=== PATIENT | female | born 2000 | race Caucasian/White ===

== ENCOUNTER 2025-01-05 14:00 | Outpatient (CLI) | payer OTHER, SELFPAY ==
[2025-01-05 14:37] VITALS: BP 120/67; PULSE 76; RESP 16; TEMP 37.4
[2025-01-05 14:43] VITALS: BMI 25.6
[2025-01-05 14:58] LABS: Color, Urine Yellow (Yellow); Glucose, Dipstick Normal (Normal); Ketone-Dipstick Negative (Negative); Leukocyte Esterase-Dipstick Negative /ul (Negative); Nitrite-Dipstick Negative (Negative); Occult Blood-Urine 250 /ul (Negative); Protein-Dipstick Negative (Negative); Urine Bilirubin Dipstick Negative (Negative); Urine Clarity Clear (Clear); Urine Urobilinogen Normal (Normal); Urine pH 6.5 (5.0 - 8.0)
[2025-01-05 15:21] LABS: ROM Internal Control Test YES-OK TO RESULT pt. (Internal QC); ROM Patient Test Negative (Negative); Record Kit Lot#, ROM+ K3358
[2025-01-05] MEDS: LACTATED RINGERS 500 ML 999 ML IV (16:25)
--- NOTE | 2025-01-05 19:02 | OB.TRI.NOTE ---
HPI - General HPI Narrative UMER CHISHOLM, is a 24 F who presents to rule out PPROM. [facility] Medical History (Updated 01/05/25 @ 19:05 by Myra Graf CNM) Depression Anxiety Allergy/AdvReac Type Severity Reaction Status Date / Time No Known Allergies Allergy Verified 01/05/25 14:41 ROS Eyes Eyes: Denies blurry vision Cardiovascular Cardiovascular: Reports none; Denies chest pain at rest, chest pain with activity or dizziness Respiratory/Chest Respiratory/Chest: Denies cough or dyspnea Gastrointestinal Gastrointestinal: Reports none and other; Denies diarrhea or vomiting Genitourinary Genitourinary: Denies dysuria Musculoskeletal Musculoskeletal: Reports none Integumentary Integumentary: Reports none; Denies rash Neurologic Neurologic: Denies dizziness, headache(s) or other visual disturbances Psychiatric Psychiatric: Reports none Physical Exam Const alert and no apparent distress General Appearance: cooperative Orientation / Consciousness: awake Exam Limitations: no limitations HEENT normocephalic Eyes General Eye: normal appearance of both eyes Neck full ROM Chest inspection of chest normal Resp normal respiratory effort and normal air movement Effort and Inspection: symmetric chest movement Auscultation: clear to auscultation bilaterally Cardio regular rate GI soft to palpation, non-tender and non-distended Inspection: and other Back/Spine normal ROM Extremity full ROM, normal capillary refill and no calf tenderness Skin no rashes or lesions noted Neuro oriented x3 and CN's II-XII intact bilaterally Psych mental status grossly normal NST FHR Rate Baby A Baseline: 150 Variability:: Moderate Accelerations:: 15 x 15 Decelerations:: None NST Reactive:: Appropriate for gestational age Uterine Activity:: irregular/ irritability Assessment & Plan (1) 29 weeks gestation of : (2) Leakage of amniotic fluid: PLAN: Plan UA- collected and sent due +occult blood IV started and fluid bolus given Patient denies feeling any contractions or cramping ROM plus- NEGATIVE D/C home with follow up in office Dr. Dumas notified of A&P
== END 2025-01-05 17:08 | disposition home or self-care (01) ==
LOC: WPOUT 14:22 → WP 14:22
PROVIDERS: PCP Nurse Practitioner Family; Referring Provider Advanced Practice Midwife; Visit Provider Advanced Practice Midwife
DX: O42.913 Preterm premature rupture of membranes, unspecified as to length of time between rupture and onset of labor, third trimester (principal); Z3A.29 29 weeks gestation of pregnancy
CPT/HCPCS: 96360; 59025; 59050; 81002; 84112; 87086; 87088; 99221; G0378

== ENCOUNTER 2025-03-14 19:15 | Inpatient (IN) | payer OTHER, SELFPAY ==
[2025-03-14] VITALS (9 sets, daily range): BP systolic 122–145; BP diastolic 77–92; PULSE 60–89; RESP 16; TEMP 36.4–36.7; O2SAT 98–100; BMI 27.1
--- NOTE | 2025-03-14 19:49 | HP.PCM.OB_ITS ---
HPI - General General Date of Admission: 03/14/25 Date of Service: 03/14/25 HPI Narrative UMER CHISHOLM, is a 25 F who presents for induction. Maternal Data Information YOLA Calculator Estimated Delivery Date Method Current WG Current Estimate 03/21/25 Manual 39w 0d [facility] Medical History (Updated 03/14/25 @ 19:[address] Saritha Dumas MD) PCOS (polycystic ovarian syndrome) Polyhydramnios Depression Anxiety Home Medications ?Medication ?Instructions ?Recorded ?Last Taken ?Type aspirin 81 mg tablet,delayed 81 mg PO DAILY 03/14/25 Unknown History release escitalopram oxalate .ROUTE anxiety 03/14/25 Unkn own History vitamin no.102-iron 90 cap PO 03/14 Unknown History mg-folate 1 mg-dha 200 mg capsule Allergy/AdvReac Type Severity Reaction Status Date / Time No Known Allergies Allergy Verified 03/14/25 19:29 NST FHR Rate Baby A Baseline: 150 Variability:: Moderate Accelerations:: 15 x 15 Decelerations:: None Uterine Activity:: quiet Vital Signs Vital Signs Vital Signs: 03/14/25 19:34 03/14/25 19:34 03/14/25 19:36 Temperature Temperature Source Temporal Pulse Rate 84 Respiratory Rate Blood Pressure BP Systolic BP Diastolic Pulse Ox 98 03/14/25 19:36 03/14/25 19:36 03/14/25 19:40 Temperature 97.6 F L Temperature Source Pulse Rate Respiratory Rate 16 Blood Pressure 145/92 H BP Systolic 145 BP Diastolic 92 Pulse Ox 03/14/25 19:40 Temperature Temperature Source Pulse Rate 89 Respiratory Rate Blood Pressure BP Systolic BP Diastolic Pulse Ox Weight Weight: 163 lb Body Mass Index (BMI) 27.1 Physical Exam Const alert, oriented x3 and no apparent distress Chest inspection of chest normal GI soft to palpation, non-tender, non-distended and no masses Inspection: gravid external exam normal Narrative: cvx - 1.5/70/-2 Labs Labs Labs: No Data to Display Assessment & Plan (1) 39 weeks gestation of : COMMENT: @ 39 weeks (2) Polyhydramnios: QUALIFIERS: Trimester: third trimester Fetus number: single or unspecified fetus Qualified Code(s): O40.3XX0 - Polyhydramnios, third trimester, not applicable or unspecified COMMENT: (mild, CHRISTY = 24.7) PLAN: Plan Admit to L&D Induction - intracervical barraza placed & will start pitocin GBS negative Pain - epidural as desired EFW - less than 4500g & patient with adequate pelvis
[2025-03-14 20:06] LABS: Hematocrit 32.8 % (37-47); Hemoglobin 10.9 g/dL (12.0-15.0); Immature Granulocytes Count 0.070 X10^3/uL (0.0-0.0); Mean Corp Hgb Conc 33.2 g/dL (32-36); Mean Corpuscular Volume 88.2 fL (81-99); Mean Platelet Vol. 10.8 fl (6.2-12.0); NRBC Flagged by Analyzer 0 % (0-5); Platelet Count 259 K/mm3 (150-450); RBC Distribution Width CV 12.8 % (11.6-14.6); RBC Distribution Width SD 40.9 fl (35.1-43.9); Red Blood Count 3.72 M/mm3 (4.2-5.4); White Blood Count 14.8 K/mm3 (4.4-11.0)
[2025-03-14] MEDS: 0.9% Normal Saline Single 100 ML IV.SOLN. INTRA-UTER (20:41)
[2025-03-14 20:45] LABS: Syphilis Antibodies Nonreactive (Nonreactive)
[2025-03-14] MEDS: Lactated Ringers 1,000 ML 50 ML IV (22:04)
[2025-03-14] MEDS: Oxytocin 15 Units/NS 250ml 15 UNITS/250 ML IV.SOLN 2 UNITS IV (22:04)
[2025-03-15] VITALS (52 sets, daily range): BP systolic 102–142; BP diastolic 55–93; PULSE 55–102; RESP 16–20; TEMP 36.3–37.4; O2SAT 81–100
[2025-03-15] MEDS: LACTATED RINGERS 500 ML 999 ML IV (07:47)
--- NOTE | 2025-03-15 08:36 | PCM.PN.BLA ---
Progress Note pt seen at bedside, doing well. pt reports mild ctx pain. VE: 4.5/70/-2 AROM clear fluid. IUPC placed.
[2025-03-15] MEDS: 0.9% Saline Lock 10 ML Syringe IV (08:42)
[2025-03-15] MEDS: Lactated Ringers 1,000 ML 999 ML IV (09:00)
[2025-03-15] MEDS: fentaNYL-bupivacaine (epidural) 100 ML BAG EPIDURAL ×2 (09:41→13:20)
[2025-03-15] MEDS: Lactated Ringers 1,000 ML 200 ML IV (12:13)
--- NOTE | 2025-03-15 17:19 | EX.PCM.OBVAG ---
Maternal Data Information YOLA Calculator Estimated Delivery Date Method Current WG Current Estimate 03/21/25 Manual 39w 1d Final YOLA: 03/21/25 Final YOLA Source: US <20 weeks Vaginal Delivery Maternal Presentation Maternal Presentation: Medically Indicated Induction Maternal Presentation: 39 weeks, polyhydramnios Type of Induction: Pitocin and Paige Bulb Medical Reason for Induction: Other (polyhydramnios ) Vaginal Delivery Information Procedure Performed: Spontaneous Vaginal Delivery Surgeon/Practitioner: Yanni Haro Date of Procedure: 03/15/25 Pre-Procedure Diagnosis: Polyhydramnios, 39 weeks Post-Procedure Diagnosis: same, live female infant Type of anesthesia: Epidural Estimated Blood Loss: 100 Time of Delivery: 16:57 Findings Description of procedure: Patient progressed to fully dilated. Good maternal pushing efforts delivered the head followed by the anterior and posterior shoulder without delay in the rest the 's body. was placed on the mother's chest for immediate skin to skin. was vigorous. Delayed cord clamping was performed. Pitocin was started. Placenta then delivered intact without complication. There was a second-degree vaginal laceration appreciated this was repaired using 2-0 Vicryl suture and a 3-0 Rapide. Patient tolerated well. Presentation: Vertex Amniotic Membrane Rupture Type: Artificial Amniotic Fluid Description: Clear Placental Delivery Description: Expressed Placenta Disposition: [facility] Specimen collected: No Cord Vessel Description: 3 Vessels Cord Entanglement: None Infant A Gender: Female (1 minute): 8 (5 minute): 9 Delayed Cord Clamping: Yes Ems Instructor mending carrier: No Post Vaginal Deli Medications given after delivery: IV Pitocin Episiotomy Description: None Laceration: Vaginal Extension/lac and 2nd degree Complication Complications: No
[2025-03-15] MEDS: Oxytocin 15 Units/NS 250ml 15 UNITS/250 ML IV.SOLN 83 UNITS IV (17:30)
[2025-03-16] VITALS (9 sets, daily range): BP systolic 100–131; BP diastolic 55–81; PULSE 63–82; RESP 14–18; TEMP 36.3–36.9; O2SAT 92–98
--- NOTE | 2025-03-16 09:34 | PCM.PN.OB ---
Subjective Subjective Doing well. Ambulating and voiding without difficulty. Mild lochia. Breast feeding. Objective Data Objective Data Vital Signs: Vital Signs Temp Pulse Resp BP Pulse Ox O2 Del Method 98.1 F 79 14 123/81 H 97 Room Air 03/16/25 04:35 03/16/25 09:11 03/16/25 04:35 03/16/25 09:11 03/16/25 09:11 03/16/25 04:35 Oxygen Delivery Method Room Air Weight: 73.936 kg Body Mass Index (BMI) 27.1 Intake & Output: Intake and Output for Last 24 Hours 03/14/25 03/15/25 03/16/25 23:59 23:59 23:59 Intake Total 1.87 / 1.87 3856.46 / 3856.46 Output Total 2500 / 2500 1600 / 1600 Balance 1.87 / 1.87 1356.46 / 1356.46 -1600 / -1600 Lab / Micro Data 03/14/25 19:30 ROS Constitutional Constitutional: Denies headache(s) Cardiovascular Cardiovascular: Denies chest pain or dyspnea Gastrointestinal Gastrointestinal: Denies nausea or vomiting Genitourinary Genitourinary: Denies dysuria Physical Exam Const alert, oriented x3 and no apparent distress General Appearance: cooperative and comfortable Eyes PERRL and EOMs intact bilaterally Resp normal respiratory effort GI soft to palpation and non-tender Narrative: Fundus firm, below umbilicus. Uterus Palpation: uterus fundus firm ( below umbilicus) Extremity normal to inspection and full ROM Neuro oriented x3 and CN's II-XII intact bilaterally Psych mental status grossly normal Assessment & Plan (1) (spontaneous vaginal delivery): PLAN: Plan Discharge home
[2025-03-16] MEDS: Benzocaine/Lanolin/Aloe Vera 85 GM Spray 1 SPRAY TOPICAL (13:02)
--- NOTE | 2025-03-16 18:01 | PCM.DC.SUM ---
Providers Date of Admission: 03/14/25 Date of Discharge: 03/16/25 Primary Care Physician: SALVATORE MartellC Reason For Visit: VAGINAL DELIVERY Diagnosis Discharge Diagnosis (1) (spontaneous vaginal delivery): Status: Acute Code(s): O80 - Encounter for full-term uncomplicated delivery Plan Discharge home Medications at Discharge Home Medications escitalopram oxalate .ROUTE anxiety 03/14/25 vitamin no.102-iron 90 mg-folate 1 mg-dha 200 mg capsule cap PO 03/14/25 ibuprofen 600 mg tablet 600 mg PO Q6H PRN PRN Pain Score 1-10 #60 tabs 03/16/25 Hospital Course Operations None Procedures None Summary of Care Provided Minutes Spent on Discharge: 20 Hospital Course: without complication. Breast and bottle feeding Physical Exam Const alert and no apparent distress Narrative: Fundus firm, below umbilicus. Weight / BMI Weight Weight: 73.936 kg Body Mass Index (BMI) 27.1 ABG / Lab / Microbiology Data 03/14/25 19:30 D/C Instructions May resume sexual activity in: 6 weeks DC O2, CPAP, BIPAP Needs Home O2 Discharge instructions: No Please Follow Up With: Cary Eisenberg MD When: Follow up with our office in 1-2 and 6 weeks or as needed. [phone] Meaningful Use Info Meaningful Use Meaningful Use Diagnoses (Choose all that apply): None applicable Discharge Plan Admission Admit Date/Time: 03/14/25 19:15 Primary Reason for Your Visit: labor Attending Provider: Yanni Haro Primary Care Provider: Maggie Fuentes NP Discharge Orders/Prescriptions Prescriptions: New ibuprofen 600 mg Tablet 600 mg PO Q6H PRN PRN (Reason: Pain Score 1-10) Qty: 60 0RF Continued escitalopram oxalate [Lexapro] .ROUTE PNV [id number] 90 mg iron- 1 mg-200 mg capsule PO Discontinued aspirin 81 mg tablet,delayed release (DR/EC) 81 mg PO DAILY Referrals / Follow Up: Maggie Fuentes NP, GAUGE AND WEIGH MACHINE ADJUSTER-C [Primary Care Provider] - Disposition Disposition (needs filled in before D/C Order can be placed): Home, Self Care
--- NOTE | 2025-03-17 09:27 | CASEMGMT ---
Social Work Assessment Labor and Delivery Unit Patient Address: [address] [place] [address] Phone number: [phone] Date of Referral: 03/16/25 Time of Referral:? [id number] Referred By: Dr. Bean Date of Intervention: ?03/16/25? Time of Intervention:? 1429 Reason for Referral:? anxiety and depression Sw completed chart review and acknowledges social work consult. Sw presented to bedside and introduced self to mother of baby (MOB- Ana Paula) and father of baby (FOB- Pato). Sw explained reason for sw involvement and completed psychosocial assessment. History obtained from: medical records, MOB and FOB Household composition: Currently SHAHAB is living with her mother. MOB states that FOGypsy lives with his mom, but is with her a majority of the time. MOB states that baby to live with her when ready for discharge, and FOB to be with them a lot of the time. MOB denies any problems or concerns with housing, stating that their house is safe and secure. Patient's parent/guardian status:? Parents state that they have been together for 3 years. They say they have known each other most of their lives since their parents have always been friends. baby is first baby for both parents together. No concerns reported of domestic violence or intimate partner violence. ? Medical History: ?SHAHAB is 25 year old female who is 1, para 0- now 1 following labor and delivery of . SHAHAB received routine care during with [facility] beginning in first trimester. SHAHAB states that she discovered she was on last year. SHAHAB presented to hospital in active labor and delivered baby via spontaneous vaginal delivery on 03/15/25 at 39 weeks gestation. Baby girl, named Liliana was born weighing 7lb 5oz and had apgars of 8 and 9 at one and five minutes of life, respectfully. SHAHAB is bottle and breast feeding and states that she plans on having baby followed by [facility] for pediatric care. Educational Status:? Both parents graduated from high school. Parents deny any problems or concerns with reading, learning or comprehension. Financial Status: SAMM is employed working at [employer], he is given 6 weeks off for paternity leave. SHAHAB states that she was previously working for [employer], and is not sure if she is going to return to working there or not when she is ready to go back. Infant Supplies:?All necessary baby supplies obtained, including: car seat, safe sleep space, clothes, diapers and wipes Childcare/Caregiver(s):? SHAHAB states that she is baby's primary caregiver, along with FOGypsy. MOB states that because she resides with her mom, her mom will also be a big help with baby. Transportation:?? Both parents have their drivers license and reliable means of transportation. No barriers. Programs/Agencies Involved: ?SHAHAB is connected to [facility] for insurance and food benefits. She states that she also tried to get connected to [facility], but was told to call them back when baby was born. ?? Children Services/Legal Issues:??No history of children services involvement. NO issues or concerns warranting referral to be made at this time. ? Behavioral Health Issues: ??Mental Health History:??SAMM denies mental health history or diagnoses. MOB states that she has been diagnosed with anxiety and depression, was previously prescribed citalopram. MOB states that her primary care doctor prescribes her medication. MOB states that she can tell a difference with her medication. MOB states that she feels as though her anxiety is managed, however she did feel more anxious during her . SHAHAB reports that an OBGYN informed her that she would not be able to get or have children due to her PCOS, and then when she discovered that she was she was caught extremely off guard so it took her a while to get acclimated to the idea of being a mom. Patient states that she is now very excited and happy. ? Substance Use History:??Parents deny substance use prior to and during . Family History:?Parents deny family history of substance use or significant mental health history. ? Drug Screens: ?No drug screens observed while completing chart review. ? Family/Social Stressors:? MOB denies any issues, concerns or stressors Support Systems: MOB states that FOB, her mom and FOB's mom are her biggest supports. Depression/Shaken Baby/Safe Sleeping:? Michelle educated parents at length regarding signs and symptoms of baby blues and depression and anxiety. Michelle explained to SHAHAB that she is more at risk for experiencing mood symptoms due to her mental health history. SHAHAB expressed understanding and states that if she were to struggle she feels comfortable talking to FOB or her mom about that. FOB says that if MOB were to have any difficulties with her mental health during this period, he would be able to recognize that and would know how to help and support her. MOB reports that she feels really good at this time, stating that she is happy, denies being down, sad, anxious or tearful. Sw educated parents on shaken baby prevention and ABCs of safe sleep, parents express understanding. ASSESSMENT:? MOB and baby admitted following labor and delivery. MOB with mental health history primarily of anxiety. MOB reports that she felt anxious during her due to being told that she was not going to be able to have children, however as progressed those anxious thoughts went away and she became more and more excited to be a mom and to meet baby. MOB reports that now that baby is here she is happy to meet her and excited to go home. MOB was observed to hold baby loving and provided appropriate hands on care. FOB also observed to hold baby and change her diaper and swaddle her appropriately. FOB states that he feels comfortable holding baby and caring for her. Parents were open and engaging throughout conversation. Parents have obtained all necessary baby supplies and have natural supports in place. MOB is prescribed medication to help her manage her mental health and is followed by her PCP to help manage any issues or concers. PLAN:? No other services requested or indicated. MOB and baby to be discharged when medically ready. Parents were provided literature regarding: signs and symptoms of baby blues and mood and anxiety disorders, Help Me Grow, shaken baby prevention, ABCs of safe sleep and a list of county resources that are available for them should any needs present themselves. Juliane Chauhan, PATIENT CARE COORDINATOR, TELECOMMUNICATION OPERATOR
--- NOTE | 2025-03-22 15:40 | NURSING ---
Follow up phone call made, no answer, left voicemail
== END 2025-03-16 19:15 | disposition home or self-care (01) | DRG 807 ==
PROVIDERS: Admitting Provider Obstetrics & Gynecology; PCP Nurse Practitioner Family; Visit Provider Obstetrics & Gynecology
DX: O40.3XX0 Polyhydramnios, third trimester, not applicable or unspecified (principal); Z37.0 Single live birth; O99.344 Other mental disorders complicating childbirth; E28.2 Polycystic ovarian syndrome; F32.A Depression, unspecified; F41.9 Anxiety disorder, unspecified; O70.1 Second degree perineal laceration during delivery; O99.284 Endocrine, nutritional and metabolic diseases complicating childbirth; Z3A.39 39 weeks gestation of pregnancy; Z79.82 Long term (current) use of aspirin; Z79.899 Other long term (current) drug therapy
CPT/HCPCS: 59025; 59050; 85025; 86780; 86850; 86900; 86901; 99221; A4216; G0378; J2405

== ENCOUNTER 2025-04-29 16:02 | Emergency (ER) | payer MEDICAID, SELFPAY ==
[2025-04-29 16:02] VITALS: BP 127/79; PULSE 68; RESP 16; TEMP 36; O2SAT 100; BMI 22.9
--- NOTE | 2025-04-29 16:41 | EX.ED.VIS.EY ---
HPI History of Present Illness Chief Complaint: Eye Problem Narrative Narrative: Patient is a 25-year-old female with past medical history of PCOS, anxiety, depression who presents to the emergency department the chief complaint of swelling to her right lower eyelid. States that she woke up this morning noted that she had some swelling noted to her lower eyelid prompting her to come here for further evaluation management. States that she tried warm compresses without any relief originally thought this was a stye. Patient states that she currently is breast-feeding. [facility] Medical History PCOS (polycystic ovarian syndrome) Polyhydramnios Depression Anxiety Home Medications ?Medication ?Instructions ?Recorded ?Last Taken ?Type escitalopram oxalate .ROUTE anxiety 03/14/25 Unknown History vitamins no.102-iron 90 cap PO 03/14/25 Unknown History mg-folate 1 mg-dha 200 mg capsule ibuprofen 600 mg tablet 600 mg PO Q6H PRN PRN Pain Score 03/16/25 Unknown Rx 1-10 #60 tabs cephalexin 500 mg capsule 500 mg PO BID #10 caps 04/29/25 Unknown Rx Allergy/AdvReac Type Severity Reaction Status Date / Time No Known Allergies Allergy Verified 03/14/25 19:29 Social History Smoking Status: Current every day smoker tobacco type: e-cigarettes ROS ROS ED ROS Narrative Constitutional: Denies any fevers or chills Eyes: Complains of swelling to her right lower eyelid as noted above denies any double vision blurry vision denies any pain with extraocular movements Neurological: Denies any numbness, wheeze, tingling Skin: Complains of right eyelid swelling as noted above EXAM Physical Exam Narrative Exam Narrative: General: Patient lying in bed rest comfortably did not appear to be acute distress Head: Atraumatic, normocephalic Eyes: PERRL bilaterally, EOMI bilaterally, no conjunctival injection noted Neck: Soft, supple, trachea midline Cardiovascular: Regular rate Extremities: +5/5 strength noted in the bilateral upper and lower extremities Neurological: Patient follow commands and that she was at [facility] years 2024 Skin: Warm, dry, mild erythema noted to the right lower eyelid no petechia no purpura no sloughing skin noted Const Vital Signs: 04/29/25 16:02 Temperature 96.8 F L Temperature Source Temporal Pulse Rate 68 Respiratory Rate 16 Blood Pressure 127/79 H Blood Pressure Mean 95 Pulse Ox 100 Oxygen Delivery Method Room Air MDM MDM MDM Narrative Medical decision making narrative: Patient is a 25-year-old female who presents to the emergency department the chief complaint of right lower eyelid swelling. On the differential diagnose includes but not limited to preseptal cellulitis, orbital cellulitis although have low suspicion for this clinically. Patient will be given first dose of Keflex here in the emergency department prescription sent to the pharmacy she advised to keep a close eye on this and return with worsening symptoms or concerns otherwise she is to follow-up with her doctor in outpatient heading. She is agreeable this plan all question concerns answered she was discharged home in stable condition. Discharge Plan Triage Chief Complaint: Eye Problem ED Provider: Rolando Mason Dx/Rx/DC Orders Clinical Impression: Preseptal cellulitis, Swelling of lower eyelid Prescriptions: New cephalexin 500 mg capsule 500 mg PO BID Qty: 10 0RF No Action escitalopram oxalate [Lexapro] .ROUTE PNV [id number]-dha 90 mg iron- 1 mg-200 mg capsule PO ibuprofen 600 mg Tablet 600 mg PO Q6H PRN PRN (Reason: Pain Score 1-10) Qty: 60 0RF Primary Care Provider: Maggie Fuentes NP Referrals: Maggie Fuentes AIRCRAFT INSTRUMENT TESTER, AIRCRAFT INSTRUMENT TESTER-C [Primary Care Provider, Family Practice] Activity Restrictions/Additional Instructions: Take antibiotics as prescribed. Return for worsening symptoms or any concerns follow-up with your doctor in outpatient setting. Print Language: Egyptian Disposition Disposition: Home, Self Care Discharge Date/Time: 04/29/25 16:38
== END 2025-04-29 16:38 | disposition home or self-care (01) ==
LOC: ED 16:37
PROVIDERS: Emergency Provider Emergency Medicine; PCP Nurse Practitioner Family; Visit Provider Emergency Medicine
DX: L03.213 Periorbital cellulitis (principal); F41.9 Anxiety disorder, unspecified; F17.290 Nicotine dependence, other tobacco product, uncomplicated
CPT/HCPCS: 99282